=== PATIENT | male | born 1990 | race African-American/Black ===

== ENCOUNTER 2019-12-16 15:39 | Emergency (ER) | payer OTHER ==
[~2019-12-16] VITALS: Ht 185.4 cm; Wt 104.3 kg
[~2019-12-16 15:39] MED LIST: AUGMENTIN 875875 MG PO; HYDROCODON-ACE1 EAC7 PO
[2019-12-16 16:54] LABS: HEMATOCRIT 45.7 % (42.0-52.0); HEMOGLOBIN 15.1 gm/dL (14.0-18.0); MCH 31.1 pg (26.0-34.0); MCV 94.4 fL (80.0-100.0); PLATELET COUNT 130 thou/uL (150-400); RBC 4.84 mil/uL (4.50-6.00); RDW 12.9 % (10.5-14.5); WBC 3.2 thou/uL (4.0-11.0)
[2019-12-16 17:09] LABS: ANION GAP 7 mmol/L (7-16); BUN 15 mg/dL (7-18); CALCIUM 8.6 mg/dL (8.5-10.1); CHLORIDE 99 mmol/L (98-107); CO2 31 mmol/L (21-32); CREATININE 1.5 mg/dL (0.7-1.3); GLUCOSE 105 mg/dL (74-106); SODIUM 137 mmol/L (136-145)
[2019-12-16 17:11] LABS: ALBUMIN 3.8 g/dL (3.4-5.0); DIRECT BILIRUBIN < 0.1 mg/dL (<0.1-0.2); LIPASE 204 U/L (73-393); SGOT 35 U/L (15-37); SGPT 41 U/L (30-65); TOTAL BILIRUBIN 0.3 mg/dL (0.2-1.0); TOTAL PROTEIN 7.6 g/dL (6.4-8.2)
[2019-12-16 17:17] LABS: ANISOCYTOSIS 1+
[2019-12-16 17:30] LABS: URINE BILIRUBIN NEGATIVE (Negative); URINE BLOOD NEGATIVE (Negative); URINE CLARITY CLEAR; URINE COLOR YELLOW; URINE GLUCOSE-RANDOM* NEGATIVE (Negative); URINE KETONES NEGATIVE (Negative); URINE LEUKOCYTES-REFLEX NEGATIVE (Negative); URINE NITRITE-REFLEX NEGATIVE (Negative); URINE PROTEIN (DIPSTICK) TRACE (Negative); URINE SPECIFIC GRAVITY >= 1.030 (1.005-1.035); URINE UROBILINOGEN 0.2 E.U./dl (0.2-1.0)
[2019-12-16] MEDS ORDERED: NORCO 5-325 TA1 EAC2 PO (21:34)
[2019-12-16] MEDS ORDERED: ONDANSETRON HCL4 M2 PO (21:34)
[2019-12-16 21:49] VITALS: BP 103/52
--- NOTE | 2019-12-17 07:46 | EKG ---
[facility] [place] [address] ELECTROCARDIOGRAM REPORT Name: BHARGAVI CADE Room #: DEP [facility]#: [id number] Admission: 12/16/19 Attend Phys: Discharge: 12/16/19 Date of : 88 Report #: [id number] THIS REPORT FOR: cc: FREDERICK - Caitie family physician/PCP FREDERICK - Caitie family physician/PCP Arnold Diaz MD [facility] ~ THIS REPORT FOR: //name// [facility] ED Test Date: 2019-12-16 Test Time: 17:10:11 Pat Name: BHARGAVI CADE Department: Room: Gender: [employer]: anel potts : 1990 Requested By: Margot Schwartz Order Number: [id number] MD: Arnold Diaz Measurements Intervals [place] Rate: 68 P: 12 WI: 164 QRS: 63 QRSD: 82 T: -17 QT: 373 QTc: 397 Interpretive Statements Sinus rhythm Borderline T abnormalities, inferior leads No previous ECG available for comparison Electronically Signed On 12-17-2019 7:45:52 CDT by Arnold Diaz [email or web address] <ELECTRONICALLY SIGNED> By: Arnold Diaz MD, FACC 12/17/19 0745 09 09 Arnold Diaz MD, FAC /EPI
[2019-12-17 16:06] LABS: HIV ANTIBODY Non Reactive (Non Reactive)
[2019-12-17 16:06] LABS: HAV IgM AB (ANTI-HAV IgM) Negative (Negative); HEPATITIS B SURFACE AG Negative (Negative); HEPATITIS C VIRUS AB 0.1 (0.0-0.9)
== END 2019-12-16 21:49 | disposition home or self-care (01) ==
LOC: ER 15:39
PROVIDERS: Physician Assistant
DX: R50.9 Fever, unspecified (principal); F17.210 Nicotine dependence, cigarettes, uncomplicated; Z79.2 Long term (current) use of antibiotics; Z79.899 Other long term (current) drug therapy